=== PATIENT | male | born 1980 | race Caucasian/White ===

== ENCOUNTER 2025-05-01 13:13 | Inpatient (IN) | payer MEDICAID, SELFPAY ==
[2025-05-01] VITALS (7 sets, daily range): BP systolic 130–162; BP diastolic 76–83; PULSE 65–88; RESP 16; TEMP 36.6–36.8; O2SAT 96–100; BMI 34.4; BMI 31.8
[2025-05-01 14:27] LABS: Hematocrit 47.8 % (40-54); Hemoglobin 15.5 g/dL (13.0-16.5); Immature Granulocytes Count 0.060 X10^3/uL (0.0-0.0); Mean Corp Hgb Conc 32.4 g/dL (32-36); Mean Corpuscular Volume 81.8 fL (80-94); Mean Platelet Vol. 9.0 fl (6.2-12.0); NRBC Flagged by Analyzer 0 % (0-5); Platelet Count 373 K/mm3 (150-450); RBC Distribution Width CV 13.2 % (11.6-14.6); RBC Distribution Width SD 38.5 fl (35.1-43.9); Red Blood Count 5.84 M/mm3 (4.6-6.2); White Blood Count 12.9 K/mm3 (4.4-11.0)
--- NOTE | 2025-05-01 14:53 | EDS_ITS ---
HPI History of Present Illness Chief Complaint: Substance Abuse Informant: patient Narrative Narrative: 44-year-old male presenting to the emergency room requesting inpatient detox from fentanyl. Patient has been a daily IV user since July. He has been using intermittently for 16 years. Prior to July he was clean for 3 years following a detox at [facility]. States he does not have any pending legal issues. He would like an HIV test. He states that he used to be caring for his elderly mother but has been only focusing on his addiction and would like help. He notes that he has a history of epilepsy but is not currently on any medications and has not been on any medications for about 6 years. He states that he believes that he has seizures when he sleeps occasionally. [facility] Medical History (Updated 05/01/25 @ 15:[address] Maximus Wood DO) Opiate addiction Seizure Home Medications ?Medication ?Instructions ?Recorded ?Last Taken ?Type NK 05/01/25 Unknown History Allergy/AdvReac Type Severity Reaction Status Date / Time amoxicillin Allergy Angioedema Verified 05/01/25 13:16 Social History Smoking Status: Never smoker ROS ROS ED Constitutional Constitutional ED: Denies chills or weight loss Eyes Eyes: Denies change in vision or diplopia ENT ENT ED: Denies ear pain, rhinorrhea or sore throat Cardiovascular Cardiovascular: Denies chest pain, orthopnea, palpitations or racing heartbeat Respiratory/Chest Respiratory/Chest: Denies cough, dyspnea or orthopnea Gastrointestinal Gastrointestinal: Denies abdominal pain, diarrhea, nausea or vomiting Genitourinary Genitourinary ED: Denies dysuria, hematuria or urinary frequency Musculoskeletal Musculoskeletal: Denies arthralgias or myalgias Integumentary Denies abscess or rash Neurologic Neurologic: Denies headache(s) or weakness Psychiatric Psychiatric: Denies anxiety, depression, suicidal ideation or suicidal thoughts Endocrine Endocrinology: Denies polydipsia, polyphagia or polyuria Allergic/Immunologic Allergic/Immunologic ED: Denies mouth swelling, tongue swelling or urticaria EXAM Physical Exam Const Vital Signs: 05/01/25 13:14 Temperature 98 F Temperature Source Oral Pulse Rate 88 Respiratory Rate 16 Blood Pressure 162/76 H Blood Pressure Mean 104 Pulse Ox 100 Oxygen Delivery Method Room Air Positive well nourished and well developed General Appearance ED: well developed HEENT Reports normocephalic, head/scalp atraumatic and moist mucous membranes Eyes PERRL and EOMs intact bilaterally Neck no lymphadenopathy, supple and no JVD Resp normal respiratory effort and clear to auscultation bilaterally Cardio regular rate, regular rhythm and no murmurs GI normal to inspection, nondistended, normoactive bowel sounds and non-tender Palpation: soft Back/Spine no CVA tenderness and normal ROM Extremity normal to inspection General Extremety ED: Negative for edema General Extremity: Negative for edema Neuro oriented x3 and CN's II-XII intact bilaterally Sensorium / Orientation: alert Motor Exam: strength 5/5 throughout Psych mental status grossly normal Mood & Affect: Negative for depressed or tearful Skin no rashes or lesions noted and no wounds Skin Narrative: Multiple venous puncture sites on extremities including legs. None of these appear to have evidence of secondary infection from the wounds he points out to me. MDM MDM MDM Narrative Medical decision making narrative: Differential diagnosis includes but not limited to opioid addiction, HIV. We will obtain medical screening labs according to hospital procedure and I will speak with the hospitalist regarding admission History & Record Review Discussion w/independent historian: Patient Lab Data Attestation: I reviewed the patient's lab results. Labs: Laboratory Results - last 24 hr 05/01/25 05/01/25 14:10 14:19 WBC 12.9 H RBC 5.84 Hgb 15.5 Hct 47.8 MCV 81.8 MCH 26.5 L MCHC 32.4 RDW Std Deviation 38.5 RDW Coeff of Jabier 13.2 Plt Count 373 MPV 9.0 Immature Gran % (Auto) 0.500 Neut % (Auto) 78.5 H Lymph % (Auto) 14.4 L [place] % (Auto) 5.4 Eos % (Auto) 0.8 Baso % (Auto) 0.4 Absolute Neuts (auto) 10.1 H Absolute Lymphs (auto) 1.86 Nucleated RBC % 0 Sodium 136 Potassium 4.7 Chloride 100 Carbon Dioxide 25.0 Anion Gap 11 BUN 10 Creatinine 0.76 Estim Creat Clear Calc 148.71 Est GFR (MDRD) Non-Af 114 BUN/Creatinine Ratio 12.8 Glucose 94 Calcium 9.4 Urine Opiates Screen PRESUMPTIVE POSITIVE U Buprenorphine Qual NEGATIVE Ur Oxycodone Screen NEGATIVE Urine Methadone Screen PRESUMPTIVE POSITIVE Urine Fentanyl Screen PRESUMPTIVE POSITIVE Ur Barbiturates Screen NEGATIVE Ur Phencyclidine Scrn NEGATIVE Ur Amphetamines Screen PRESUMPTIVE POSITIVE U Benzodiazepines Scrn NEGATIVE Urine Cocaine Screen NEGATIVE U Cannabinoids Screen NEGATIVE Ethyl Alcohol < 10.1 Management Discussion w/another healthcare provider: Hospitalist Discharge Plan Dx/Rx/DC Orders Clinical Impression: Opioid abuse, Active intravenous drug use Disposition Disposition: Acute Care Hospital [facility]
--- NOTE | 2025-05-01 14:54 | HP.PCM.HOS_ITS ---
HPI - General General Date of Admission: 05/01/25 Date of Service: 05/01/25 Chief Complaint: Opiate abuse with desire for detox HPI Narrative JOSE NOLASCO, is a 44 M who presented to [facility] ED on 05/01/2025 with opiate abuse and desire for detox. Patient uses IV fentanyl on a daily basis. He injects on his arms and legs primarily. Last use was earlier this morning around 2 AM. He is having mild withdrawal symptoms currently of anxiety and nauseousness. He has been through inpatient detox in the past at [facility] about 2 years ago. He does remember going through a Subutex taper and this controlled his symptoms fairly well. He currently lives down in [place], came to our hospital because his mother was here last year for physical therapy and his friend told him about our ramp program. He is not on any home medications. Has a reported history of seizures and was on Depakote at 1 time but this was since discontinued. In the ED he was mildly hypertensive to the 150s systolic, was otherwise in normal sinus rhythm and stable on room air at rest. UDS positive for opiates, fentanyl, amphetamines and methadone. Given desire for detox, hospitalist was contacted for admission. I saw the patient at bedside in the ED. Patient was sitting back fairly comfortably in bed, conversing normally, in no acute distress. He denied any acute pain or discomfort. Denied any fevers or chills. No other acute concerns currently. Will be admitted for further management. [facility] Medical History (Updated 05/01/25 @ 15:[address] Luis Enrique Francisco, ) Opiate addiction Seizure Home Medications ?Medication ?Instructions ?Recorded ?Last Taken ?Type NK 05/01/25 Unknown History Allergy/AdvReac Type Severity Reaction Status Date / Time amoxicillin Allergy Angioedema Verified 05/01/25 13:16 Social History Smoking Status: Never smoker ROS Constitutional Constitutional: Denies chills, fatigue, fever(s) or weakness Eyes Eyes: Denies change in vision Cardiovascular Cardiovascular: Denies chest pain Respiratory/Chest Respiratory/Chest: Denies shortness of breath at rest Gastrointestinal Gastrointestinal: Reports nausea; Denies abdominal pain or vomiting Genitourinary Genitourinary: Denies dysuria Musculoskeletal Musculoskeletal: Denies arthralgias or myalgias Neurologic Neurologic: Denies dizziness, focal weakness, headache(s), numbness or tingling Psychiatric Psychiatric: Reports anxiety Vital Signs Vital Signs Vital Signs: 05/01/25 13:14 Temperature 98 F Temperature Source Oral Pulse Rate 88 Respiratory Rate 16 Blood Pressure 162/76 H Blood Pressure Mean 104 Pulse Ox 100 Oxygen Delivery Method Room Air Weight Weight: 105.857 kg Body Mass Index (BMI) 34.4 Physical Exam Const alert, oriented x3 and no apparent distress Constitutional Narrative: Middle-age male, class I obesity, mildly anxious appearing but otherwise sitting back comfortably in bed, conversing normally, in no acute distress. General Appearance: cooperative and comfortable HEENT normocephalic, head/scalp atraumatic, hearing grossly normal bilaterally, nasal mucous membranes and turbinates normal and moist oral mucous membranes Eyes PERRL, EOMs intact bilaterally and conjunctivae normal Neck full ROM Chest inspection of chest normal Resp normal respiratory effort, normal air movement, no use of accessory muscles and clear to auscultation bilaterally Cardio regular rate, regular rhythm, no murmurs and peripheral pulses 2+ throughout GI normal to inspection, nondistended, normoactive bowel sounds, soft to palpation, non-tender and non-distended Back/Spine normal ROM Extremity normal to inspection, full ROM and no pedal edema Skin Skin Narrative: Track oakes noted on both arms and both lower legs. No active signs of infection noted. Psych mental status grossly normal Mood & Affect: anxious Results Lab / Micro Data 05/01/25 14:19 05/01/25 14:19 Labs: Laboratory Results - last 24 hr 05/01/25 14:19: WBC 12.9 H, RBC 5.84, Hgb 15.5, Hct 47.8, MCV 81.8, MCH 26.5 L, MCHC 32.4, RDW Std Deviation 38.5, RDW Coeff of Jabier 13.2, Plt Count 373, MPV 9.0, Immature Gran % (Auto) 0.500, Neut % (Auto) 78.5 H, Lymph % (Auto) 14.4 L, [place] % (Auto) 5.4, Eos % (Auto) 0.8, Baso % (Auto) 0.4, Absolute Neuts (auto) 10.1 H, Absolute Lymphs (auto) 1.86, Nucleated RBC % 0 Assessment & Plan Assessment/Plan (1) Opioid abuse: (2) Active intravenous drug use: (3) Desire for detoxification: PLAN: Plan Patient is a 44-year-old male who presented to [facility] ED on 05/01/2025 with opiate abuse and desire for detox 1. Opiate abuse with withdrawal and desire for detox, polysubstance abuse ? Admit under inpatient status to [facility]. Case management consulted. Reports IV fentanyl use multiple times daily. Last use on elastic yarn twister helper of day of admission. UDS positive for opiates, fentanyl, amphetamines and methadone. Will treat with Subutex taper and other as needed medications per opiate withdrawal order set. Patient would like to pursue inpatient treatment after discharge, appreciate case management assistance. 2. Mild leukocytosis ? WBC count 12.9 K on admit, neutrophil predominant. Patient afebrile and hemodynamically stable, no systemic signs of infection noted. Has track oakes noted on arms and legs from IV drug use in various stages of healing but not appear actively infected. No murmur noted on exam. Given his IV drug use, will order blood cultures but will hold on any antibiotics for now. Follow-up a.m. CBC. 3. Elevated BP readings ? Hypertensive to the 150s systolic in the ED. Patient reports history of mildly high blood pressures in the past but has never been on antihypertensive therapy. Notes that his blood pressure will go up with opiate withdrawal as well. Treatment for opiate withdrawal as above. Monitor BP, no need to initiate hypertensive therapy for now. 4. Class I obesity ? BMI 34.5 on admit. Complicates hospital course and care. Encouraged lifestyle modifications. 5. Reported history of seizure disorder ? Patient reports history of seizures many years ago and was on Depakote for period of time, but this was discontinued by a provider in [place] due to concern for interactions with other medications. Patient denies any seizures in the past few years. Monitor. Recommend close outpatient follow-up with PCP. DVT prophylaxis: Lovenox CODE STATUS: Full code, verified Expected disposition: TBD Total clinical time spent by myself addressing the patient's medical issues, reviewing all the data, and collaborating with patient's care team: 56 minutes. Charges/Coding Visit Charges Inpatient E&M: 63150 Init Hosp L2
[2025-05-01 15:04] LABS: Barbiturate Urine NEGATIVE (< 200 ng/mL); Benzodiazepine Urine NEGATIVE (< 200 ng/mL); PCP Urine NEGATIVE (< 25 ng/mL); THC Urine NEGATIVE (< 50 ng/mL)
[2025-05-01 15:06] LABS: Alcohol, Blood (Medical)-Serum < 10.1 mg/dL (<=10.0)
[2025-05-01 15:19] LABS: Anion Gap 11 (5-15); BUN 10 mg/dL (4-19); BUN/Creat Ratio 12.8 RATIO (10-20); Calcium,Total 9.4 mg/dL (7.6-11.0); Carbon Dioxide 25.0 mmol/L (21.0-32.0); Chloride 100 mmol/L (98-108); Estimated Creatinine Clearance 148.71 ml/min (50-250); Glucose 94 mg/dL (70-99); Potassium 4.7 mmol/L (3.3-5.1)
[2025-05-01 15:44] LABS: HIV Nonreactive (Nonreactive)
[2025-05-01 16:07] LABS: AST(SGOT) 29 U/L (<=37); Alanine Aminotransfer ALT/SGPT 23 U/L (<=46); Albumin, Serum 4.2 g/dL (3.5-5.0); Alkaline Phosphatase 97 U/L (40-129); Bilirubin, Direct 0.14 mg/dL (0.00-0.30); Globulin 3.9 g/dL (2.2-4.2)
[2025-05-01] MEDS: hydrOXYzine PAM 25 MG Capsule 50 MG PO (18:59)
--- NOTE | 2025-05-01 19:31 | CM.ED ---
Social Work Patient presents to ED wishing to detox from fentanyl. Treatment navigator notified of RAMP admission. Margie Ivan, POURER, TURN OUT
[2025-05-02 05:27] LABS: Hematocrit 43.3 % (40-54); Hemoglobin 13.8 g/dL (13.0-16.5); Mean Corp Hgb Conc 31.9 g/dL (32-36); Mean Corpuscular Volume 81.9 fL (80-94); Mean Platelet Vol. 8.9 fl (6.2-12.0); Platelet Count 368 K/mm3 (150-450); RBC Distribution Width CV 13.2 % (11.6-14.6); RBC Distribution Width SD 39.5 fl (35.1-43.9); Red Blood Count 5.29 M/mm3 (4.6-6.2); White Blood Count 8.0 K/mm3 (4.4-11.0)
[2025-05-02 05:46] VITALS: BP 132/76; PULSE 80; RESP 16; TEMP 37; O2SAT 94
[2025-05-02 05:48] LABS: Anion Gap 10 (5-15); BUN 9 mg/dL (4-19); BUN/Creat Ratio 12.0 RATIO (10-20); Calcium,Total 8.9 mg/dL (7.6-11.0); Carbon Dioxide 25.6 mmol/L (21.0-32.0); Chloride 103 mmol/L (98-108); Estimated Creatinine Clearance 153.57 ml/min (50-250); Glucose 121 mg/dL (70-99); Potassium 4.0 mmol/L (3.3-5.1)
[2025-05-02 07:25] VITALS: O2SAT 97
[2025-05-02 09:49] VITALS: BP 135/66; PULSE 84; RESP 16; TEMP 36.4; O2SAT 96
[2025-05-02] MEDS: hydrOXYzine PAM 25 MG Capsule 50 MG PO (09:54)
--- NOTE | 2025-05-02 11:45 | ADDICTION ---
This sign writer letterer or painter met with PT to conduct ASAM, MSE, and DUDIT assessments and to plan for d/c. PT A+Ox4 and participated actively. All assessments completed and placed in PT's chart. PT plans to f/u with [facility] in [place] for follow-up in patient treatment services. [facility]'s legal billing coordinator is unavailable until Sunday at 9AM to provide admission date/time. Transportation to be provided by pt's friend, Mira. Mira requests to be given a heads up prior to pt discharge at # [phone].
[2025-05-02 11:59] VITALS: BP 135/74; PULSE 66; RESP 16; TEMP 36.5; O2SAT 98
--- NOTE | 2025-05-02 16:07 | PCM.PN.HOSP ---
Reason for Visit Chief Complaint: Opiate abuse with desire for detox Subjective Subjective Feeling little bit hot and tired, nausea improved from earlier, denies any abdominal pain or diarrhea at this time Objective Data Objective Data Vital Signs: Vital Signs Temp Pulse Resp BP Pulse Ox O2 Del Method 97.7 F L 66 16 135/74 H 98 Room Air 05/02/25 11:59 05/02/25 11:59 05/02/25 11:59 05/02/25 11:59 05/02/25 11:59 05/02/25 11:59 Oxygen Delivery Method Room Air Weight: 100.698 kg Body Mass Index (BMI) 31.8 Intake & Output: Intake and Output for Last 24 Hours 04/30/25 05/01/25 05/02/25 23:59 23:59 23:59 Intake Total 400 / 400 450 / 450 Balance 400 / 400 450 / 450 Lab / Micro Data 05/02/25 04:59 05/02/25 04:59 Labs: Laboratory Results - last 24 hr 05/01/25 14:19: Total Bilirubin 0.62, Direct Bilirubin 0.14, AST 29, ALT 23, Alkaline Phosphatase 97, Total Protein 8.1, Albumin 4.2, Globulin 3.9 05/02/25 04:59: WBC 8.0, RBC 5.29, Hgb 13.8, Hct 43.3, MCV 81.9, MCH 26.1 L, MCHC 31.9 L, RDW Std Deviation 39.5, RDW Coeff of Jabier 13.2, Plt Count 368, MPV 8.9, Sodium 139, Potassium 4.0, Chloride 103, Carbon Dioxide 25.6, Anion Gap 10, BUN 9, Creatinine 0.73, Estim Creat Clear Calc 153.57, Est GFR (MDRD) Non-Af 115, BUN/Creatinine Ratio 12.0, Glucose 121 H, Calcium 8.9 Physical Exam Narrative General: Wakes up and answers questions appropriately, appears to not feel well HEENT: Normocephalic Eyes: extraocular movements grossly intact Neck: Supple Respiratory: normal respiratory effort Cardiovascular: no edema appreciated GI: nondistended Extremities: Moving all extremities Neuro: No overt focal neurological deficits Psych: Cooperative Assessment & Plan Assessment/Plan (1) Opioid abuse: (2) Active intravenous drug use: (3) Desire for detoxification: PLAN: Plan #Opiate abuse with withdrawal and desire for detox, polysubstance abuse ? Admit under inpatient status to [facility]. Case management consulted. Reports IV fentanyl use multiple times daily. Last use on research quality assurance analyst of day of admission. UDS positive for opiates, fentanyl, amphetamines and methadone. Will treat with Subutex taper and other as needed medications per opiate withdrawal order set. Patient would like to pursue inpatient treatment after discharge, appreciate case management assistance. -05/02: Subutex taper still pending, patient being supported with other support medications. Patient still desires inpatient. Addiction coordinator evaluated patient today and noted plan is to follow-up with the [facility] for inpatient services however their group billing coordinator is unavailable until Sunday morning, further dispo pending. Continue supportive care at this time #Mild leukocytosis ? WBC count 12.9 K on admit, neutrophil predominant. Patient afebrile and hemodynamically stable, no systemic signs of infection noted. Has track oakes noted on arms and legs from IV drug use in various stages of healing but not appear actively infected. No murmur noted on exam. Given his IV drug use, will order blood cultures but will hold on any antibiotics for now. Follow-up a.m. CBC. -05/02: White count normal this a.m. and patient afebrile, will monitor cultures but low suspicion for active infection #Elevated BP readings ? Hypertensive to the 150s systolic in the ED. Patient reports history of mildly high blood pressures in the past but has never been on antihypertensive therapy. Notes that his blood pressure will go up with opiate withdrawal as well. Treatment for opiate withdrawal as above. Monitor BP, no need to initiate hypertensive therapy for now. -05/02: Blood pressure 135/74, continue to support patient's withdrawal symptoms #Reported history of seizure disorder ? Patient reports history of seizures many years ago and was on Depakote for period of time, but this was discontinued by a provider in [place] due to concern for interactions with other medications. Patient denies any seizures in the past few years. Monitor. Recommend close outpatient follow-up with PCP. -05/02: No seizure activity reported #DVT ppx: Low risk, ambulatory Lisa Ng MD Time spent in the patient's overall evaluation,decision-making process, review of diagnostic data, adjustment of management, discussion with other providers, nursing nursing and ancillary staff involved in patient's care documentation, 36 minutes Charges/Coding Visit Charges Inpatient E&M: 88507 Subs Hosp L2
[2025-05-02 16:18] VITALS: BP 137/53; PULSE 72; RESP 16; TEMP 36.6; O2SAT 96
[2025-05-02 23:00] VITALS: BP 141/75; PULSE 74; RESP 18; TEMP 36.8; O2SAT 95
[2025-05-03] MEDS: hydrOXYzine PAM 25 MG Capsule 50 MG PO ×2 (06:34→14:48)
[2025-05-03 06:42] VITALS: BP 123/60; PULSE 67; RESP 16; TEMP 36.2; O2SAT 97
[2025-05-03 07:25] VITALS: O2SAT 96
[2025-05-03 08:28] VITALS: BP 148/73; PULSE 79; RESP 17; TEMP 36.5; O2SAT 96
[2025-05-03 14:46] VITALS: BP 146/81; PULSE 77; RESP 16; TEMP 37.3; O2SAT 98
--- NOTE | 2025-05-03 15:17 | PCM.PN.HOSP ---
Reason for Visit Chief Complaint: Opiate abuse with desire for detox Subjective Subjective Reports he still feeling somewhat hot, earlier had a little bit of abdominal upset that is resolved, also was feeling little bit nauseous earlier but this is also resolved Objective Data Objective Data Vital Signs: Vital Signs Temp Pulse Resp BP Pulse Ox O2 Del Method 99.1 F 77 16 146/81 H 98 Room Air 05/03/25 14:46 05/03/25 14:46 05/03/25 14:46 05/03/25 14:46 05/03/25 14:46 05/03/25 14:46 Oxygen Delivery Method Room Air Weight: 100.698 kg Body Mass Index (BMI) 31.8 Intake & Output: Intake and Output for Last 24 Hours 05/01/25 05/02/25 05/03/25 23:59 23:59 23:59 Intake Total 400 / 400 950 / 950 Balance 400 / 400 950 / 950 Lab / Micro Data 05/02/25 04:59 05/02/25 04:59 Physical Exam Narrative General: Wakes up and answers questions appropriately HEENT: Normocephalic Eyes: extraocular movements grossly intact Neck: Supple Respiratory: normal respiratory effort Cardiovascular: no edema appreciated GI: nondistended Extremities: Moving all extremities Neuro: No overt focal neurological deficits Psych: Cooperative Assessment & Plan Assessment/Plan (1) Opioid abuse: (2) Active intravenous drug use: (3) Desire for detoxification: PLAN: Plan #Opiate abuse with withdrawal and desire for detox, polysubstance abuse ? Admit under inpatient status to [facility]. Case management consulted. Reports IV fentanyl use multiple times daily. Last use on national accounts recruiter of day of admission. UDS positive for opiates, fentanyl, amphetamines and methadone. Will treat with Subutex taper and other as needed medications per opiate withdrawal order set. Patient would like to pursue inpatient treatment after discharge, appreciate case management assistance. -05/02: Subutex taper still pending, patient being supported with other support medications. Patient still desires inpatient. Addiction coordinator evaluated patient today and noted plan is to follow-up with the [facility] for inpatient services however their patient information coordinator is unavailable until Sunday morning, further dispo pending. Continue supportive care at this time -05/03: Ideally tomorrow more information will be available about inpatient rehab, never scored to start the Subutex taper so has been treated symptomatically with additional as needed medications #Elevated BP readings ? Hypertensive to the 150s systolic in the ED. Patient reports history of mildly high blood pressures in the past but has never been on antihypertensive therapy. Notes that his blood pressure will go up with opiate withdrawal as well. Treatment for opiate withdrawal as above. Monitor BP, no need to initiate hypertensive therapy for now. -05/02: Blood pressure 135/74, continue to support patient's withdrawal symptoms -05/03: BP 146/81, again supporting patient's withdrawal, never scored to start Subutex taper which may impart be why blood pressure is elevated, will likely benefit most from following up closely with a PCP on discharge to monitor for need to start medication #Reported history of seizure disorder ? Patient reports history of seizures many years ago and was on Depakote for period of time, but this was discontinued by a provider in [place] due to concern for interactions with other medications. Patient denies any seizures in the past few years. Monitor. Recommend close outpatient follow-up with PCP. #Mild leukocytosis?resolved ? WBC count 12.9 K on admit, neutrophil predominant. Patient afebrile and hemodynamically stable, no systemic signs of infection noted. Has track oakes noted on arms and legs from IV drug use in various stages of healing but not appear actively infected. No murmur noted on exam. Given his IV drug use, will order blood cultures but will hold on any antibiotics for now. Follow-up a.m. CBC. -05/02: White count normal this a.m. and patient afebrile, will monitor cultures but low suspicion for active infection #DVT ppx: Low risk, ambulatory Lisa Ng MD Charges/Coding Visit Charges Inpatient E&M: 03967 Subs Hosp L1
[2025-05-03 21:37] VITALS: BP 144/70; PULSE 66; RESP 18; TEMP 36.8; O2SAT 96
[2025-05-04 04:31] VITALS: BP 148/76; PULSE 68; RESP 18; TEMP 36.9; O2SAT 98
[2025-05-04] MEDS: hydrOXYzine PAM 25 MG Capsule 50 MG PO ×2 (04:38→11:35)
[2025-05-04 09:55] VITALS: BP 142/82; PULSE 80; RESP 16; TEMP 36.4; O2SAT 98
--- NOTE | 2025-05-04 15:17 | DCINST_ITS ---
Discharge Instructions DC O2, CPAP, BIPAP needs Home O2 Discharge instructions: No Follow Up Care Test Results: Test results from this visit will be discussed in further detail at your follow- up appointment, if applicable. Discharge Plan Admission Admit Date/Time: 05/01/25 14:55 Primary Reason for Your Visit: Opiate detox Attending Provider: Luis Enrique Francisco Primary Care Provider: Kelvin Samano Consulting Providers: Luis Enrique Francisco; Lisa Ng Discharge Orders/Prescriptions Prescriptions: No Action NK Referrals / Follow Up: Kelvin Samano MD [Primary Care Provider, Family Practice] NOT,DEFINED [Non-Staff, None] Disposition Disposition (needs filled in before D/C Order can be placed): Against Medical Advice
--- NOTE | 2025-05-04 15:18 | PCM.DC.SUM ---
Providers Date of Admission: 05/01/25 Date of Discharge: 05/04/25 Primary Care Physician: Dr. Kelvin Samano MD Reason For Visit: OPIATE DETOX Diagnosis Discharge Diagnosis (1) Opioid abuse: Status: Acute Code(s): F11.10 - Opioid abuse, uncomplicated (2) Active intravenous drug use: Status: Acute Code(s): F19.90 - Other psychoactive substance use, unspecified, uncomplicated (3) Desire for detoxification: Status: Acute Medications at Discharge Home Medications NK 05/01/25 Hospital Course Operations None Procedures None Summary of Care Provided Minutes Spent on Discharge: 26 Hospital Course: Patient is a 44-year-old male who presented to [facility] ED on 05/01/2025 with opiate abuse and desire for detox. Hospital course as noted below. Patient unfortunately left AGAINST MEDICAL ADVICE on the morning of 05/04. 1. Opiate abuse with withdrawal and desire for detox, polysubstance abuse ? Case management followed. Reported IV fentanyl use multiple times daily. 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 UDS positive for opiates, fentanyl, amphetamines and methadone. Treated with Subutex taper and other as needed medications per opiate withdrawal order set. Patient reported fairly good control of withdrawal symptoms during hospitalization and plan was for discharge to inpatient treatment. However, on 05/04 he noted worsening withdrawal symptoms and opted to leave AGAINST MEDICAL ADVICE. 2. Mild leukocytosis, resolved ? WBC count 12.9 K on admit, neutrophil predominant. Patient afebrile and hemodynamically stable, no systemic signs of infection noted. Has track oakes noted on arms and legs from IV drug use in various stages of healing but not appear actively infected. No murmur noted on exam. Blood cultures negative. Leukocytosis resolved on hospital day 2. 3. Elevated BP readings ? Hypertensive to the 150s systolic in the ED. Patient reports history of mildly high blood pressures in the past but has never been on antihypertensive therapy. BP remained mildly elevated in the 130s to 140s during hospitalization suspected secondary to opiate withdrawal. No antihypertensive therapy initiated. 4. Class I obesity ? BMI 34.5 on admit. Complicated hospital course and care. Encouraged lifestyle modifications. 5. Reported history of seizure disorder ? Patient reports history of seizures many years ago and was on Depakote for period of time, but this was discontinued by a provider in [place] due to concern for interactions with other medications. Patient denies any seizures in the past few years. Recommend close outpatient follow-up with PCP. Total clinical time spent by myself addressing the patient's medical issues, reviewing all the data, and collaborating with patient's care team: 26 minutes. Physical Exam Narrative General: Wakes up and answers questions appropriately HEENT: Normocephalic Eyes: extraocular movements grossly intact Neck: Supple Respiratory: normal respiratory effort Cardiovascular: no edema appreciated GI: nondistended Extremities: Moving all extremities Neuro: No overt focal neurological deficits Psych: Cooperative Weight / BMI Weight Weight: 100.698 kg Body Mass Index (BMI) 31.8 ABG / Lab / Microbiology Data 05/02/25 04:59 05/02/25 04:59 Microbiology: Microbiology 05/01/25 18:10 Blood Culture (Wb) - No Site/Description Given Blood Culture - Preliminary No growth in 48 hours. 05/01/25 17:29 Blood Culture (Wb) - Right Wrist Blood Culture - Preliminary No growth in 48 hours. D/C Instructions DC O2, CPAP, BIPAP Needs Home O2 Discharge instructions: No Meaningful Use Info Meaningful Use Meaningful Use Diagnoses (Choose all that apply): None applicable Discharge Plan Admission Admit Date/Time: 05/01/25 14:55 Primary Reason for Your Visit: Opiate detox Attending Provider: Luis Enrique Francisco Primary Care Provider: Kelvin Samano Consulting Providers: Luis Enrique Francisco; Lisa Ng Discharge Orders/Prescriptions Prescriptions: No Action NK Referrals / Follow Up: Kelvin Samano MD [Primary Care Provider, Family Practice] NOT,DEFINED [Non-Staff, None] Disposition Disposition (needs filled in before D/C Order can be placed): Against Medical Advice Charges/Coding Visit Charges Inpatient E&M: 40707 Disch Hosp
== END 2025-05-04 11:54 | disposition left against medical advice (07) | DRG 770 ==
LOC: ED 15:05 → MS3 15:18
PROVIDERS: Admitting Provider Hospitalist; Emergency Provider Emergency Medicine; PCP Family Medicine; Visit Provider Hospitalist
DX: F11.13 Opioid abuse with withdrawal (principal); D72.829 Elevated white blood cell count, unspecified; E66.811 Obesity, class 1; F19.19 Other psychoactive substance abuse with unspecified psychoactive substance-induced disorder; Z68.34 Body mass index [BMI] 34.0-34.9, adult; R03.0 Elevated blood-pressure reading, without diagnosis of hypertension; Z53.29 Procedure and treatment not carried out because of patient's decision for other reasons
CPT/HCPCS: 36415; 80048; 80076; 80307; 82077; 85025; 85027; 86703; 87040; 97802; 99283